=== PATIENT | male | born 1955 | race Two or more races ===

== ENCOUNTER 2017-07-26 17:42 | Emergency (ER) | payer OTHER ==
[~2017-07-26] VITALS: Ht 165.1 cm; Wt 98.9 kg
[2017-07-26 18:00] VITALS: Ht 165.1 cm; Wt 98.9 kg
[2017-07-26 20:20] VITALS: BP 134/82
== END 2017-07-26 20:20 | disposition home or self-care (01) ==
LOC: ED 17:42
DX: S82.841A Displaced bimalleolar fracture of right lower leg, initial encounter for closed fracture (principal); I10 Essential (primary) hypertension; M10.9 Gout, unspecified; Z88.0 Allergy status to penicillin; W18.30XA Fall on same level, unspecified, initial encounter; Y93.21 Activity, ice skating; Y99.8 Other external cause status; Y92.89 Other specified places as the place of occurrence of the external cause
CPT/HCPCS: Q0092